=== PATIENT | male | born 1990 | race Caucasian/White ===

== ENCOUNTER 2022-11-10 20:01 | Emergency (ER) | payer OTHER ==
[~2022-11-10] VITALS: Ht 190.5 cm; Wt 68.0 kg
[2022-11-10 20:05] VITALS: BP_SYST 131
--- NOTE | 2022-11-10 20:05 | NUR ---
Patient triaged and placed in waiting room. VSS and patient appears in no acute distress at this time. Accompanied by FRIEND, awaiting available bed, and MD notified of need for MSE.
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
--- NOTE | 2022-11-10 21:02 | NUR ---
DR RODGERS OUT TO TRIAGE ROOM FOR EVALUATION
[2022-11-10] MEDS ORDERED: ACETAMINOPHEN 500 MG TABLET PO ONE (21:15)
[2022-11-10] MEDS ORDERED: IBUPROFEN 600 MG TABLET PO ONE (21:15)
--- NOTE | 2022-11-10 21:53 | NUR ---
TAKEN TO RADIOLOGY AMBULATORY
[2022-11-10] MEDS ORDERED: ACET-2634 PO (22:23)
[2022-11-10] MEDS ORDERED: IBUP-1969 PO (22:23)
--- NOTE | 2022-11-10 22:36 | NUR ---
Patient given written and verbal discharge instructions and verbalizes understanding. ER Dr Pulido discussed with patient the results and treatment provided. Patient in stable condition. ID arm band removed. Rx of Mckean and Motrin given. Patient educated on pain management and to follow up with PMD. Pain Scale 2/10. Opportunity for questions provided and answered. Medication side effect fact sheet provided.
[2022-11-10 22:37] VITALS: BP_SYST 131
== END 2022-11-10 22:36 | disposition home or self-care (01) ==
LOC: SED 20:01
DX: M54.2 Cervicalgia (principal); R07.89 Other chest pain; M25.561 Pain in right knee; Z79.899 Other long term (current) drug therapy; V89.2XXA Person injured in unspecified motor-vehicle accident, traffic, initial encounter; Y93.89 Activity, other specified; Y92.89 Other specified places as the place of occurrence of the external cause; Y99.8 Other external cause status
CPT/HCPCS: 71045; 73564; 99284